=== PATIENT | female | born 1940 | race Caucasian/White ===

== ENCOUNTER 2022-04-11 11:30 | Emergency (ER) | payer MEDICARE, OTHER ==
[~2022-04-11] VITALS: Ht 165.1 cm; Wt 43.5 kg
[~2022-04-11 11:30] MED LIST: AMIT25TA19 PO; AZAT50TA PO; BIMA2.5D EACHEYE; CELE-193 PO; DULO-31 PO; DULO60CA60 PO; ERGO500014 PO; HYDR-3964 PO; HYDR25TA4 PO; MULT-1085 PO; OMEP20CA4 PO; VALS160T2 PO
[2022-04-11 13:46] VITALS: BP 130/53
--- NOTE | 2022-04-11 15:48 | NUR ---
pc to lilian with social work aps. he updated this nurse of another family member noé [phone]. was unable to reach. updated lilian that pt will not be staying.
[2022-04-11] MEDS ORDERED: acetaminophen 325mg tablet PO ONE (16:05)
== END 2022-04-11 16:27 | disposition home or self-care (01) ==
LOC: ER 11:30
DX: Z00.00 Encounter for general adult medical examination without abnormal findings (principal); Z88.1 Allergy status to other antibiotic agents
CPT/HCPCS: 99283

== ENCOUNTER 2022-08-25 10:50 | Emergency (ER) | payer MEDICARE, OTHER ==
[~2022-08-25] VITALS: Ht 166.4 cm; Wt 50.9 kg
[~2022-08-25 10:50] MED LIST changes: -AMIT25TA19 PO; +APIX2.5T PO; -AZAT50TA PO; -BIMA2.5D EACHEYE; -CELE-193 PO; -DULO-31 PO; -DULO60CA60 PO; -ERGO500014 PO; +FURO20TA4 PO; -HYDR-3964 PO; -HYDR25TA4 PO; +LOSA25TA41 PO; -MULT-1085 PO; -OMEP20CA4 PO; +POTA8TAB69 PO; +TRAM50TA2 PO; -VALS160T2 PO
[2022-08-25 12:20] LABS: BASOPHILS # (AUTO) 0.1 X10'3 (0-0.2); EOSINOPHILS # (AUTO) 0.1 X10'3 (0-0.9); EOSINOPHILS % (AUTO) 0.5 % (0-6); HEMOGLOBIN 11.4 g/dl (12.0-16.0); LYMPHOCYTES # (AUTO) 1.2 X10'3 (1.1-4.8); LYMPHOCYTES % (AUTO) 8.3 % (21-51); MEAN CORPUSCULAR HGB CONC 32.5 g/dL (33.0-36.5); MEAN CORPUSCULAR VOLUME 86.2 FL (78-98); MEAN PLATELET VOLUME 6.4 FL (7.4-10.4); MONOCYTES # (AUTO) 1.7 X10'3 (0-0.9); MONOCYTES % (AUTO) 11.6 % (2-12); NEUTROPHILS # (AUTO) 11.7 X10'3 (1.8-7.7); NEUTROPHILS % (AUTO) 78.6 % (42-75); PLATELET COUNT 565 X10'3 (140-440); RED BLOOD COUNT 4.05 X10'6 (4.20-5.60); RED CELL DISTRIBUTION WIDTH 15.5 % (11.5-14.5); WHITE BLOOD COUNT 14.9 X10'3 (4.5-11.0)
[2022-08-25 12:31] VITALS: BP 100/58
[2022-08-25 12:35] LABS: ALANINE AMINOTRANSFERASE 24 U/L (12-78); ALBUMIN 2.5 G/DL (3.4-5.0); ALBUMIN/GLOBULIN RATIO 0.5 (1.1-1.5); ALKALINE PHOSPHATASE 82 IU/L (46-116); ANION GAP 9 (8-16); ASPARTATE AMINO TRANSFERASE 31 U/L (10-37); BILIRUBIN,TOTAL 0.5 MG/DL (0.1-1.0); BLOOD UREA NITROGEN 23 MG/DL (7-18); BUN/CREATININE RATIO 27.4 (10.0-20.0); CHLORIDE 103 MMOL/L (99-107); CREATININE 0.84 MG/DL (0.40-0.90); GLUCOSE 77 MG/DL (70-104); POTASSIUM 4.6 MMOL/L (3.5-5.1); SODIUM 135 MMOL/L (135-145); TOTAL PROTEIN 7.8 G/DL (6.4-8.2); eGFR 65 ML/MIN
[2022-08-25] MEDS ORDERED: normal saline 1000ML IV soln IVB ONE (15:10)
[2022-08-25 16:09] LABS: CLARITY,URINE CLEAR (Clear); COLOR,URINE YELLOW (Yellow); GLUCOSE, URINE NEGATIVE (Neg); KETONES,URINE NEGATIVE (Neg); LEUKOCYTE ESTERASE ,URINE NEGATIVE (Neg); NITRITES, URINE NEGATIVE (Neg); OCCULT BLOOD,URINE TRACE-INTACT (Neg); PH,URINE 6.5 (4.8-8.0); PROTEIN,URINE NEGATIVE (Neg); UROBILINOGEN,URINE 0.2 E.U/dL (0.2-1.0)
[2022-08-25 16:18] LABS: UA COLLECTION TYPE STRAIGHT CATH
[2022-08-25 16:21] LABS: BACTERIA,URINE FEW /HPF (Neg); RBC,URINE 0-2 /HPF (0-2); SQUAMOUS EPITHELIAL CELL,UR FEW /LPF (FEW); WBC,URINE 0-4 /HPF (0-4)
== END 2022-08-25 17:36 | disposition home or self-care (01) ==
LOC: ER 10:51
DX: F41.9 Anxiety disorder, unspecified (principal); F32.A Depression, unspecified; Z88.1 Allergy status to other antibiotic agents
CPT/HCPCS: 36415; 71045; 80053; 81001; 83605; 84145; 85025; 87040; 93005; 99285; J7030; A4353

== ENCOUNTER 2022-08-28 10:32 | Emergency (ER) | payer MEDICARE, OTHER ==
[~2022-08-28] VITALS: Ht 165.1 cm; Wt 51.0 kg
[2022-08-28 12:24] LABS: BASOPHILS # (AUTO) 0.1 X10'3 (0-0.2); EOSINOPHILS # (AUTO) 0.1 X10'3 (0-0.9); LYMPHOCYTES % (AUTO) 11.3 % (21-51); MEAN PLATELET VOLUME 6.3 FL (7.4-10.4); PLATELET COUNT 692 X10'3 (140-440)
[2022-08-28 12:25] LABS: BASOPHILS % (AUTO) 0.8 % (0-1); EOSINOPHILS % (AUTO) 0.6 % (0-6); HEMATOCRIT 38.5 % (35.0-45.0); HEMOGLOBIN 12.4 g/dl (12.0-16.0); MEAN CORPUSCULAR HEMOGLOBIN 27.9 PG (27.0-31.0); MEAN CORPUSCULAR HGB CONC 32.1 g/dL (33.0-36.5); MEAN CORPUSCULAR VOLUME 86.8 FL (78-98); MONOCYTES # (AUTO) 1.7 X10'3 (0-0.9); MONOCYTES % (AUTO) 9.4 % (2-12); NEUTROPHILS # (AUTO) 13.8 X10'3 (1.8-7.7); NEUTROPHILS % (AUTO) 77.9 % (42-75); RED BLOOD COUNT 4.43 X10'6 (4.20-5.60); RED CELL DISTRIBUTION WIDTH 16.1 % (11.5-14.5); WHITE BLOOD COUNT 17.7 X10'3 (4.5-11.0)
[2022-08-28 13:01] LABS: ALANINE AMINOTRANSFERASE 30 U/L (12-78); ALBUMIN 2.7 G/DL (3.4-5.0); ALBUMIN/GLOBULIN RATIO 0.5 (1.1-1.5); ALKALINE PHOSPHATASE 85 IU/L (46-116); ANION GAP 15 (8-16); ASPARTATE AMINO TRANSFERASE 33 U/L (10-37); BILIRUBIN,TOTAL 0.4 MG/DL (0.1-1.0); BLOOD UREA NITROGEN 22 MG/DL (7-18); CALCIUM 9.4 MG/DL (8.5-10.1); CHLORIDE 105 MMOL/L (99-107); CREATININE 0.88 MG/DL (0.40-0.90); GLUCOSE 71 MG/DL (70-104); POTASSIUM 4.1 MMOL/L (3.5-5.1); SODIUM 140 MMOL/L (135-145); TOTAL CARBON DIOXIDE 19.6 MMOL/L (24-32); TOTAL PROTEIN 8.7 G/DL (6.4-8.2); eGFR 61 ML/MIN
[2022-08-28] MEDS ORDERED: phenylephrine/cocoa butter (Preparation H) suppository RC ONE (13:10)
[2022-08-28] MEDS ORDERED: PHEN51CR24 RC (13:12)
[2022-08-28] MEDS ORDERED: PHEN1SUP96 PR (13:12)
--- NOTE | 2022-08-28 13:38 | NUR ---
Straight cath performed. Pt was screaming while I was doing it and started throwing an f word to me. Small urine obtained and sent to lab
[2022-08-28] MEDS: pramoxine 1% foam spray 15gm TP ONE (15:05)
[2022-08-28 15:40] VITALS: BP 105/59
--- NOTE | 2022-08-28 15:49 | NUR ---
Attempted to call patient's son Pasha, no answer, automated voice said "the mailbox is full and cannot accept any new messages at this time!"
[2022-08-28 15:51] LABS: CLARITY,URINE SLIGHTLY CLOUDY (Clear); COLOR,URINE YELLOW (Yellow); GLUCOSE, URINE NEGATIVE (Neg); KETONES,URINE TRACE mg/dl (Neg); LEUKOCYTE ESTERASE ,URINE NEGATIVE (Neg); NITRITES, URINE NEGATIVE (Neg); OCCULT BLOOD,URINE NEGATIVE (Neg); PROTEIN,URINE NEGATIVE (Neg); UROBILINOGEN,URINE 0.2 E.U/dL (0.2-1.0)
--- NOTE | 2022-08-28 15:52 | NUR ---
Called Yeny listed on the demographic data, someone answered the phone but denied her name was Yeny.
[2022-08-28 15:58] LABS: UA COLLECTION TYPE NON-SPECIFIED
[2022-08-28 15:59] LABS: MUCUS STRANDS FEW /LPF (Neg); SQUAMOUS EPITHELIAL CELL,UR FEW /LPF (FEW)
[2022-08-28 16:00] LABS: BACTERIA,URINE FEW /HPF (Neg); WBC,URINE 0-4 /HPF (0-4)
--- NOTE | 2022-08-28 16:04 | NUR ---
Charge nurse Laura notified about the issue with getting hold of family to picking supervisor patient. She advised me to contact social media assistant. Sent a page message to social media assistant to call ER
--- NOTE | 2022-08-28 16:54 | NUR ---
I spoke to the patient's son Pasha on the phone. I gave him update about the patient and that patient is being discharge today. Pasha said he will come and pick up and delivery driver patient. Patient was notified about this
== END 2022-08-28 17:25 | disposition home or self-care (01) ==
LOC: ER 10:32
DX: K64.4 Residual hemorrhoidal skin tags (principal); F41.9 Anxiety disorder, unspecified; F03.90 Unspecified dementia, unspecified severity, without behavioral disturbance, psychotic disturbance, mood disturbance, and anxiety; Z88.1 Allergy status to other antibiotic agents; Z79.899 Other long term (current) drug therapy; Z79.1 Long term (current) use of non-steroidal anti-inflammatories (NSAID); Z79.2 Long term (current) use of antibiotics
CPT/HCPCS: 80053; 81001; 85025; 93005; 99284; A4353; A4615

== ENCOUNTER 2022-09-21 15:57 | Emergency (ER) | payer MEDICARE, OTHER ==
[~2022-09-21] VITALS: Ht 165.1 cm; Wt 50.9 kg
[~2022-09-21 15:57] MED LIST changes: +PHEN1SUP96 PR; +PHEN51CR24 RC
[2022-09-21 16:29] LABS: BASOPHILS # (AUTO) 0.1 X10'3 (0-0.2); EOSINOPHILS # (AUTO) 0.2 X10'3 (0-0.9); EOSINOPHILS % (AUTO) 1.4 % (0-6); HEMATOCRIT 37.5 % (35.0-45.0); HEMOGLOBIN 11.9 g/dl (12.0-16.0); LYMPHOCYTES # (AUTO) 1.7 X10'3 (1.1-4.8); LYMPHOCYTES % (AUTO) 12.5 % (21-51); MEAN CORPUSCULAR HEMOGLOBIN 26.5 PG (27.0-31.0); MEAN CORPUSCULAR HGB CONC 31.7 g/dL (33.0-36.5); MEAN CORPUSCULAR VOLUME 83.6 FL (78-98); MEAN PLATELET VOLUME 6.4 FL (7.4-10.4); MONOCYTES # (AUTO) 1.2 X10'3 (0-0.9); MONOCYTES % (AUTO) 8.9 % (2-12); NEUTROPHILS # (AUTO) 10.4 X10'3 (1.8-7.7); NEUTROPHILS % (AUTO) 76.2 % (42-75); PLATELET COUNT 642 X10'3 (140-440); RED BLOOD COUNT 4.48 X10'6 (4.20-5.60); RED CELL DISTRIBUTION WIDTH 16.3 % (11.5-14.5); WHITE BLOOD COUNT 13.7 X10'3 (4.5-11.0)
[2022-09-21 16:42] LABS: ALANINE AMINOTRANSFERASE 19 U/L (12-78); ALBUMIN 2.6 G/DL (3.4-5.0); ALBUMIN/GLOBULIN RATIO 0.4 (1.1-1.5); ALKALINE PHOSPHATASE 91 IU/L (46-116); ANION GAP 9 (8-16); ASPARTATE AMINO TRANSFERASE 21 U/L (10-37); BILIRUBIN,TOTAL 0.2 MG/DL (0.1-1.0); BLOOD UREA NITROGEN 22 MG/DL (7-18); BUN/CREATININE RATIO 25.9 (10.0-20.0); CALCIUM 9.6 MG/DL (8.5-10.1); CHLORIDE 101 MMOL/L (99-107); CREATININE 0.85 MG/DL (0.40-0.90); GLUCOSE 116 MG/DL (70-104); POTASSIUM 4.5 MMOL/L (3.5-5.1); SODIUM 136 MMOL/L (135-145); TOTAL CARBON DIOXIDE 26.1 MMOL/L (24-32); TOTAL PROTEIN 8.9 G/DL (6.4-8.2); eGFR 64 ML/MIN
[2022-09-21] MEDS ORDERED: morphine 4 MG/ML inj SYRINge IV ONE (17:25)
[2022-09-21] MEDS ORDERED: normal saline 1000ml 1,000 ML IV ONE (17:25)
[2022-09-21] MEDS ORDERED: ondansetron/PF 4mg/2ml inj IV ONE (17:25)
[2022-09-21 17:59] LABS: CLARITY,URINE CLEAR (Clear); COLOR,URINE YELLOW (Yellow); GLUCOSE, URINE NEGATIVE (Neg); KETONES,URINE NEGATIVE (Neg); LEUKOCYTE ESTERASE ,URINE NEGATIVE (Neg); NITRITES, URINE NEGATIVE (Neg); OCCULT BLOOD,URINE NEGATIVE (Neg); PH,URINE 7.5 (4.8-8.0); PROTEIN,URINE NEGATIVE (Neg); UROBILINOGEN,URINE 0.2 E.U/dL (0.2-1.0)
[2022-09-21 18:01] LABS: UA COLLECTION TYPE OTHER
[2022-09-21 19:44] VITALS: BP 93/66
== END 2022-09-21 19:47 | disposition home or self-care (01) ==
LOC: ER 15:57
DX: K64.9 Unspecified hemorrhoids (principal); F41.9 Anxiety disorder, unspecified; F03.90 Unspecified dementia, unspecified severity, without behavioral disturbance, psychotic disturbance, mood disturbance, and anxiety; Z88.0 Allergy status to penicillin; Z79.899 Other long term (current) drug therapy; Z79.1 Long term (current) use of non-steroidal anti-inflammatories (NSAID); Z79.2 Long term (current) use of antibiotics
CPT/HCPCS: 36415; 71045; 80053; 81003; 83880; 84484; 85025; 93005; 96361; 96374; 96375; 99285; J2270; J2405; J7030

== ENCOUNTER 2022-09-26 11:02 | Emergency (ER) | payer MEDICARE, OTHER ==
[~2022-09-26] VITALS: Ht 165.1 cm; Wt 50.0 kg
[~2022-09-26 11:02] MED LIST changes: -TRAM50TA2 PO
[2022-09-26] MEDS ORDERED: oxyCODONE IR 5mg (immed. release) tablet PO ONE (11:45)
[2022-09-26] MEDS ORDERED: acetaminophen 325mg tablet PO ONE (11:45)
[2022-09-26] MEDS ORDERED: normal saline 500ml IV soln 500 ML IV ONE (13:20)
[2022-09-26 14:09] LABS: ANION GAP 12 (8-16); BILIRUBIN,TOTAL 0.3 MG/DL (0.1-1.0); BLOOD UREA NITROGEN 18 MG/DL (7-18); BUN/CREATININE RATIO 18.9 (10.0-20.0); CALCIUM 9.8 MG/DL (8.5-10.1); CHLORIDE 104 MMOL/L (99-107); CREATININE 0.95 MG/DL (0.40-0.90); GLUCOSE 109 MG/DL (70-104); SODIUM 138 MMOL/L (135-145); TOTAL CARBON DIOXIDE 21.7 MMOL/L (24-32); TOTAL PROTEIN 8.5 G/DL (6.4-8.2); eGFR 56 ML/MIN
[2022-09-26 14:10] LABS: ALANINE AMINOTRANSFERASE 12 U/L (12-78); ALBUMIN 2.5 G/DL (3.4-5.0); ALBUMIN/GLOBULIN RATIO 0.4 (1.1-1.5); ALKALINE PHOSPHATASE 83 IU/L (46-116)
[2022-09-26 14:16] LABS: ASPARTATE AMINO TRANSFERASE 21 U/L (10-37); POTASSIUM 5.2 MMOL/L (3.5-5.1)
[2022-09-26] MEDS ORDERED: iohexol 300mg/ml 100ml inj. ONE (15:11)
[2022-09-26 16:08] LABS: BASOPHILS % (AUTO) 0.2 % (0-1); EOSINOPHILS # (AUTO) 0.1 X10'3 (0-0.9); EOSINOPHILS % (AUTO) 1.3 % (0-6); HEMATOCRIT 31.1 % (35.0-45.0); HEMOGLOBIN 9.9 g/dl (12.0-16.0); LYMPHOCYTES % (AUTO) 17.8 % (21-51); MEAN CORPUSCULAR HEMOGLOBIN 26.4 PG (27.0-31.0); MEAN CORPUSCULAR HGB CONC 31.9 g/dL (33.0-36.5); MEAN CORPUSCULAR VOLUME 82.9 FL (78-98); MEAN PLATELET VOLUME 6.4 FL (7.4-10.4); MONOCYTES # (AUTO) 1.1 X10'3 (0-0.9); MONOCYTES % (AUTO) 9.7 % (2-12); NEUTROPHILS # (AUTO) 8.1 X10'3 (1.8-7.7); PLATELET COUNT 569 X10'3 (140-440); RED BLOOD COUNT 3.74 X10'6 (4.20-5.60); RED CELL DISTRIBUTION WIDTH 16.1 % (11.5-14.5); WHITE BLOOD COUNT 11.4 X10'3 (4.5-11.0)
[2022-09-26] MEDS ORDERED: LIDOcaine 1% W/epiNEPHrine 1:100,000 20ml vial SQ ONE (18:00)
[2022-09-26 19:50] VITALS: BP 138/89
== END 2022-09-26 19:52 | disposition home or self-care (01) ==
LOC: ER 11:02
DX: K62.5 Hemorrhage of anus and rectum (principal); R07.9 Chest pain, unspecified; R10.9 Unspecified abdominal pain; K64.9 Unspecified hemorrhoids; R51.9 Headache, unspecified; F41.9 Anxiety disorder, unspecified; F03.90 Unspecified dementia, unspecified severity, without behavioral disturbance, psychotic disturbance, mood disturbance, and anxiety; Z88.1 Allergy status to other antibiotic agents
CPT/HCPCS: 36415; 70450; 71045; 74177; 80053; 83880; 84484; 85025; 85610; 86885; 86900; 86901; 93005; 99285; J3490; J7030; J7040; Q9967; A4615; A4620

== ENCOUNTER 2022-11-15 22:45 | Inpatient (IN) | payer MEDICARE, OTHER ==
[~2022-11-15] VITALS: Ht 162.6 cm; Wt 56.8 kg
[~2022-11-15 22:45] MED LIST changes: +ACET-1008 PO; -APIX2.5T PO; +DOCU-148 PO; +DULO30CA52 PO; +LEVO-65 PO; +MULT-1074 PO; -PHEN1SUP96 PR; -PHEN51CR24 RC; +RIVA15TA PO
[2022-11-15] MEDS ORDERED: acetaminophen 325mg tablet PO ONE (23:35)
[2022-11-16] VITALS (7 sets, daily range): BP systolic 82–125; BP diastolic 35–93
[2022-11-16 01:02] LABS: BASOPHILS # (AUTO) 0.1 X10'3 (0-0.2); BASOPHILS % (AUTO) 0.7 % (0-1); EOSINOPHILS # (AUTO) 0.2 X10'3 (0-0.9); MEAN PLATELET VOLUME 6.4 FL (7.4-10.4)
[2022-11-16 01:04] LABS: EOSINOPHILS % (AUTO) 1.3 % (0-6); HEMOGLOBIN 10.5 g/dl (12.0-16.0); LYMPHOCYTES % (AUTO) 6.7 % (21-51); MEAN CORPUSCULAR HEMOGLOBIN 26.4 PG (27.0-31.0); MEAN CORPUSCULAR HGB CONC 31.8 g/dL (33.0-36.5); MEAN CORPUSCULAR VOLUME 83.1 FL (78-98); MONOCYTES # (AUTO) 1.8 X10'3 (0-0.9); MONOCYTES % (AUTO) 11.9 % (2-12); NEUTROPHILS # (AUTO) 12.3 X10'3 (1.8-7.7); NEUTROPHILS % (AUTO) 79.4 % (42-75); PLATELET COUNT 617 X10'3 (140-440); RED BLOOD COUNT 3.98 X10'6 (4.20-5.60); RED CELL DISTRIBUTION WIDTH 18.9 % (11.5-14.5); WHITE BLOOD COUNT 15.5 X10'3 (4.5-11.0)
[2022-11-16 01:10] LABS: ALANINE AMINOTRANSFERASE 27 U/L (12-78); ALBUMIN 2.1 G/DL (3.4-5.0); ALBUMIN/GLOBULIN RATIO 0.4 (1.1-1.5); ALKALINE PHOSPHATASE 237 IU/L (46-116); ANION GAP 9 (8-16); ASPARTATE AMINO TRANSFERASE 39 U/L (10-37); BILIRUBIN,TOTAL 0.4 MG/DL (0.1-1.0); BLOOD UREA NITROGEN 22 MG/DL (7-18); BUN/CREATININE RATIO 30.1 (10.0-20.0); CALCIUM 8.6 MG/DL (8.5-10.1); CHLORIDE 99 MMOL/L (99-107); CREATININE 0.73 MG/DL (0.40-0.90); GLUCOSE 117 MG/DL (70-104); LIPASE 196 U/L (73-393); POTASSIUM 4.2 MMOL/L (3.5-5.1); SODIUM 135 MMOL/L (135-145); TOTAL CARBON DIOXIDE 27.4 MMOL/L (24-32); TOTAL PROTEIN 6.9 G/DL (6.4-8.2); eGFR 76 ML/MIN
[2022-11-16] MEDS ORDERED: normal saline 1000ml 1,000 ML IV ONE ×2 (01:10→14:55)
[2022-11-16 01:34] LABS: ANISOCYTOSIS 2+; PLATELET ESTIMATE INCREASED; TOTAL CELLS COUNTED 100
[2022-11-16 01:37] LABS: GIANT PLATELET FEW; HYPERSEGMENTED NEUTROPHILS 1+; LARGE PLATELETS FEW
[2022-11-16 01:39] LABS: POIKILOCYTOSIS FEW
[2022-11-16] MEDS ORDERED: magnesium 4gm in 100ml NS 100 ML IV PRN (02:05)
[2022-11-16] MEDS ORDERED: potassium Cl 20 mEq SR tablet PO PRN ×2 (02:05)
[2022-11-16] MEDS ORDERED: mag hydrox/Alum hydrox/simeth 30ml oral suspension PO PRN (02:05)
[2022-11-16] MEDS ORDERED: magnesium hydroxide 30ml (MOM) UD suspension PO PRN (02:05)
[2022-11-16] MEDS ORDERED: potassium Cl 40MEQ/1/2NS 520ml 520 ML IV PRN (02:05)
[2022-11-16] MEDS ORDERED: magnesium Cl slow-release 64mg tablet PO PRN (02:05)
[2022-11-16] MEDS ORDERED: magnesium 2GM in 50ml NS 50 ML IV PRN (02:05)
[2022-11-16] MEDS ORDERED: ondansetron/PF 4mg/2ml inj IV PRN (02:05)
[2022-11-16] MEDS ORDERED: normal saline 500ml IV soln 500 ML IV ONE (02:45)
--- NOTE | 2022-11-16 03:00 | NUR ---
PUREWICK ONLY NO PECK PER DR YANES
--- NOTE | 2022-11-16 04:08 | NUR ---
pt arrived to floor. oriented, noted low BP on left arm, higher on left. pt stable, sleepy. bed alarm active. insight of station. wick in place.
[2022-11-16] MEDS ORDERED: OMEP40CA21 PO (04:13)
[2022-11-16] MEDS ORDERED: LOP12.5T PO (04:16)
[2022-11-16] MEDS ORDERED: IPRA3AMP31 IH (04:21)
[2022-11-16] MEDS ORDERED: acetaminophen 325mg tablet PO PRN (04:30)
[2022-11-16] MEDS: acetaminophen 325mg tablet PO PRN (05:55)
--- NOTE | 2022-11-16 06:00 | NUR ---
Patient in room ORTHO 4010. I have received report from Brock ROY and had the opportunity to ask questions and assume patient care.
[2022-11-16 06:23] LABS: MAGNESIUM 1.8 MG/DL (1.5-2.4); POTASSIUM 4.1 MMOL/L (3.5-5.1)
--- NOTE | 2022-11-16 06:31 | NUR ---
reported to days. noted pt has not voided and need urinalysis. wick in place.
[2022-11-16] MEDS ORDERED: docusate sod 100mg capsule PO SCH (08:00)
[2022-11-16] MEDS: K and/or MAG REPLACEMENT MC SCH ×2 (08:00→19:47)
[2022-11-16] MEDS: ipratropium/albuterol 3ml nebule IH SCH ×3 (08:29→21:03)
[2022-11-16] MEDS: docusate sod 100mg capsule PO SCH ×2 (08:56→20:45)
[2022-11-16] MEDS: pantoprazole 40mg Tablet.DR PO SCH (08:56)
[2022-11-16] MEDS: duloxetine 30mg CAPSULE.DR PO SCH (08:56)
--- NOTE | 2022-11-16 09:28 | NUR ---
wound consult in for this patient, unaware if a message was left for wound care. I called and LMOM to see patient or RC. 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
--- NOTE | 2022-11-16 09:52 | NUR ---
Wound care came to the unit and did the wound care assessment
--- NOTE | 2022-11-16 09:55 | NUR ---
Patient son Kelton is here in the patient room. Kelton expressed his concerns about his mothers care. Kelton stated that his mother was here the 1st time in the beginning of the month because of a fall at home. The action plan for his mother was to go to [facility] for short term rehab. Patient went to [facility] for 4-5 days and came back to [facility] on Sunday the . [facility] notified son Kelton due to patient elevated heart rate. Patient was sent back to [facility]. On the patient fell at [facility] and sent patient back to [facility].
[2022-11-16] MEDS ORDERED: ondansetron 4mg rapidly disintigrating tab PO PRN (11:00)
[2022-11-16] MEDS ORDERED: LidoCAINE 2% Topical Jelly 11mL syringe MM ONE ×2 (11:35→11:40)
--- NOTE | 2022-11-16 11:45 | NUR ---
Patient Markie Melara (Pasha) phone number is [phone]. Provided to CM and SBAR updated
[2022-11-16 12:55] LABS: CLARITY,URINE SLIGHTLY CLOUDY (Clear); COLOR,URINE YELLOW (Yellow); GLUCOSE, URINE NEGATIVE (Neg); KETONES,URINE NEGATIVE (Neg); LEUKOCYTE ESTERASE ,URINE NEGATIVE (Neg); NITRITES, URINE POSITIVE (Neg); OCCULT BLOOD,URINE NEGATIVE (Neg); PH,URINE 8.5 (4.8-8.0); PROTEIN,URINE TRACE mg/dl (Neg); UROBILINOGEN,URINE 0.2 E.U/dL (0.2-1.0)
--- NOTE | 2022-11-16 12:58 | NUR ---
Message: [id number]- Racheal Villalta- Can patient have Ensure Enlive? Pls advise? DWAYNE delvalle [phone]
[2022-11-16 13:00] LABS: UA COLLECTION TYPE STRAIGHT CATH
[2022-11-16 13:02] LABS: BACTERIA,URINE 4+ /HPF (Neg); RBC,URINE NONE SEEN /HPF (0-2); SQUAMOUS EPITHELIAL CELL,UR FEW /LPF (FEW)
[2022-11-16 13:03] LABS: WBC CLUMPS,URINE FEW /HPF (NEGATIVE)
[2022-11-16 13:04] LABS: WBC,URINE 20-30 /HPF (0-4)
--- NOTE | 2022-11-16 13:18 | NUR ---
Ruben Consult: Pt Ruben 11 w/ sacral MASD/shearing otherwise skin intact per WOC note. Noted pt BMI 18.9 using 50kg reported wt pending scaled wt this admit though pt appears cachectic per H&P note. Pt AOx1 reports no wt loss or decreased intake per RN Malnutrition Screen but hx dementia so unsure accuracy. Pt seen by RD at bedside mostly sleeping wouldn't stay awake for interview. Noted pt is thin w/ sunken temples though unsure if baseline appearance given age. RD attempted second pt visit in which pt was awake w/ RN present though pt declines RD physical assessment at this time. Pt son Pasha [phone]; per Pasha pt UBW ~110 pounds was down to 100 pounds at one point though able to return to 110 pounds. 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 Pasha reports pt does drink Ensures routinely at home. Pt wt hx per son consistent w/ current reported wt and given prior good appetite reported pt likely maintains stable underweight status at baseline. RD did notify MD recommends scaled wt this admit to better assess wt status. If pt has had wt loss then would certainly meet malnutrition criteria though unable to say for certain at this time until scaled wt. Pt did not eat first regular breakfast this AM related to nausea per TOWER DRAGLINE OPERATOR now placed on full liquids/thin diet per MECHANICAL ARTIST recs. Pt started to eat solids lunch but tray had to be removed w/ new late full liquids tray made given MECHANICAL ARTIST recs. KAVYA d/w RN recommends Ensure Enlive TIDWM if MD agreeable. Addendum: 11/16/22 at [address] Amended: Links added. Addendum: 11/16/22 at [address] Ruben Consult: Pt Ruben 11 w/ sacral MASD/shearing otherwise skin intact per WOC note. Noted pt BMI 18.9 using 50kg reported wt pending scaled wt this admit though pt appears cachectic per H&P note. Pt AOx1 reports no wt loss or decreased intake per RN Malnutrition Screen but hx dementia so unsure accuracy. Pt seen by RD at bedside mostly sleeping wouldn't stay awake for interview. Noted pt is thin w/ sunken temples though unsure if baseline appearance given age. RD attempted second pt visit in which pt was awake w/ RN present though pt declines RD physical assessment at this time. Pt son Pasha [phone] contacted by KAVYA; per Pasha pt UBW ~110 pounds was down to 100 pounds at one point though able to return to 110 pounds. 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 Pasha reports pt does drink Ensures routinely at home. Pt wt hx per son consistent w/ current reported wt and given prior good appetite reported pt likely maintains stable underweight status at baseline. KAVYA did notify MD recommends scaled wt this admit to better assess wt status. If pt has had wt loss then would certainly meet malnutrition criteria though unable to say for certain at this time until scaled wt. Pt did not eat first regular breakfast this AM related to nausea per TOWER DRAGLINE OPERATOR now placed on full liquids/thin diet per MECHANICAL ARTIST recs. Pt started to eat solids lunch but tray had to be removed w/ new late full liquids tray made given MECHANICAL ARTIST recs. RD d/w RN recommends Ensure Enlive TIDWM if MD agreeable. Rec: 1. advance diet as medically indicated to regular per MECHANICAL ARTIST/MD recs 2. Ensure Enlive TIDWM if MD agreeable; encourage meals/ONS intake
--- NOTE | 2022-11-16 14:50 | NUR ---
Message: [id number]- Racheal Villalta- patient BP is 82/35 Hr 67. manually, BP 84/42. Pls advise? TY [phone] Negrita
--- NOTE | 2022-11-16 14:53 | NUR ---
Dr. Hewitt called back and stated to give patient 1L NS Bolus and then NS fluids at 75ml/hr. Orders placed and RN hanging fluids
--- NOTE | 2022-11-16 14:55 | NUR ---
Per Dr. Marcelina burch for patient to have ensure enlive. orders placed and dispatch coordinator notified
--- NOTE | 2022-11-16 15:04 | NUR ---
MACHINE PRECISION ETCHER documentation: I have reviewed and agree with all interventions, assessments performed and documented by Negrita Ortiz LVN.
[2022-11-16] MEDS: CefTRIAXone/D5W-Rocephin 1gm 50 ML IV SCH (15:48)
--- NOTE | 2022-11-16 16:30 | NUR ---
Message: [id number]- Racheal Villalta- Patient has a PLOST DNR in chart but emar shows FULL code. Pls advise? TY Negrita [phone]
[2022-11-16] MEDS: normal saline 1000ml 1,000 ML IV SCH (16:53)
[2022-11-16] MEDS: rivaroxaban 15mg tablet PO SCH (17:39)
[2022-11-16] MEDS: lactose-reduced food (Ensure Enlive) - 237ml bottle PO SCH (18:00)
--- NOTE | 2022-11-16 18:20 | NUR ---
Problems reprioritized. Patient report given, questions answered & plan of care reviewed with Leann ROY.
--- NOTE | 2022-11-16 19:16 | NUR ---
Patient in room ORTHO 4010. I have received report from Negrita DE OLIVEIRA and had the opportunity to ask questions and assume patient care.
[2022-11-16] MEDS: metoprolol tartrate 12.5mg (1/2 tablet) PO SCH (20:00)
[2022-11-16] MEDS: lactobacillus rhamnosus 10,000 MMU CELLS/CAPSULE PO SCH (20:45)
--- NOTE | 2022-11-16 21:24 | NUR ---
Pt's BP was 108/52. Contacted provider with request to hold Lopressor due to consistent low bp throughout the day. Provider advised to hold Lopressor
--- NOTE | 2022-11-17 00:25 | NUR ---
Pt was bladder scanned with a residual of 430ml. Provider was contacted and advised that pt would be straight cathed as needed for urinary retention greater than 400ml Addendum: 11/17/22 at 0225 by Zakiya Campbell RN Pt was straight cathed with a residual of 300mls. Will continue to monitor
[2022-11-17] MEDS: acetaminophen 325mg tablet PO PRN ×2 (00:37→22:28)
[2022-11-17] MEDS: ipratropium/albuterol 3ml nebule IH SCH ×4 (03:00→20:58)
[2022-11-17] MEDS: normal saline 1000ml 1,000 ML IV SCH ×2 (04:01→17:36)
[2022-11-17] MEDS: HYDROcodone/acetaminophen 5mg/325mg tablet PO PRN ×3 (04:24→15:09)
[2022-11-17 06:00] VITALS: BP 127/49
[2022-11-17 06:20] LABS: BASOPHILS # (AUTO) 0.1 X10'3 (0-0.2); BASOPHILS % (AUTO) 0.9 % (0-1); EOSINOPHILS # (AUTO) 0.1 X10'3 (0-0.9); HEMATOCRIT 30.7 % (35.0-45.0); HEMOGLOBIN 9.7 g/dl (12.0-16.0); LYMPHOCYTES # (AUTO) 0.4 X10'3 (1.1-4.8); LYMPHOCYTES % (AUTO) 6.3 % (21-51); MEAN CORPUSCULAR HEMOGLOBIN 26.5 PG (27.0-31.0); MEAN CORPUSCULAR HGB CONC 31.5 g/dL (33.0-36.5); MEAN CORPUSCULAR VOLUME 84.1 FL (78-98); MEAN PLATELET VOLUME 6.5 FL (7.4-10.4); MONOCYTES # (AUTO) 0.7 X10'3 (0-0.9); MONOCYTES % (AUTO) 10.8 % (2-12); NEUTROPHILS # (AUTO) 5.1 X10'3 (1.8-7.7); PLATELET COUNT 516 X10'3 (140-440); RED BLOOD COUNT 3.65 X10'6 (4.20-5.60); RED CELL DISTRIBUTION WIDTH 19.4 % (11.5-14.5); WHITE BLOOD COUNT 6.3 X10'3 (4.5-11.0)
[2022-11-17 06:41] LABS: ALANINE AMINOTRANSFERASE 25 U/L (12-78); ALBUMIN 1.9 G/DL (3.4-5.0); ALBUMIN/GLOBULIN RATIO 0.4 (1.1-1.5); ALKALINE PHOSPHATASE 244 IU/L (46-116); ANION GAP 8 (8-16); ASPARTATE AMINO TRANSFERASE 35 U/L (10-37); BILIRUBIN,TOTAL 0.3 MG/DL (0.1-1.0); BLOOD UREA NITROGEN 9 MG/DL (7-18); BUN/CREATININE RATIO 12.5 (10.0-20.0); CALCIUM 8.5 MG/DL (8.5-10.1); CHLORIDE 105 MMOL/L (99-107); CREATININE 0.72 MG/DL (0.40-0.90); GLUCOSE 93 MG/DL (70-104); MAGNESIUM 1.7 MG/DL (1.5-2.4); POTASSIUM 4.4 MMOL/L (3.5-5.1); SODIUM 138 MMOL/L (135-145); TOTAL CARBON DIOXIDE 25.3 MMOL/L (24-32); TOTAL PROTEIN 6.5 G/DL (6.4-8.2); eGFR 77 ML/MIN
--- NOTE | 2022-11-17 06:43 | NUR ---
Patient in room ORTHO 4010. I have received report from MANUELA Weaver and had the opportunity to ask questions and assume patient care.
[2022-11-17 07:27] LABS: HYPOCHROMASIA 1+; PLATELET ESTIMATE INCREASED; POLYCHROMASIA FEW
[2022-11-17 07:28] LABS: ANISOCYTOSIS 2+; STOMATOCYTES FEW; TEAR DROP CELLS FEW
[2022-11-17] MEDS: K and/or MAG REPLACEMENT MC SCH ×2 (08:00→19:01)
[2022-11-17] MEDS: CefTRIAXone/D5W-Rocephin 1gm 50 ML IV SCH (08:04)
[2022-11-17] MEDS: lactobacillus rhamnosus 10,000 MMU CELLS/CAPSULE PO SCH ×2 (08:33→19:44)
[2022-11-17] MEDS: pantoprazole 40mg Tablet.DR PO SCH (08:33)
[2022-11-17] MEDS: duloxetine 30mg CAPSULE.DR PO SCH (08:33)
[2022-11-17] MEDS: docusate sod 100mg capsule PO SCH ×2 (08:33→19:44)
[2022-11-17] MEDS: metoprolol tartrate 12.5mg (1/2 tablet) PO SCH ×2 (08:34→20:00)
[2022-11-17] MEDS: multivitamins, therapeutics tablet PO SCH (08:34)
[2022-11-17] MEDS: lactose-reduced food (Ensure Enlive) - 237ml bottle PO SCH ×3 (08:35→17:44)
--- NOTE | 2022-11-17 12:46 | NUR ---
F/u: A bed scaled wt was obtained, pt 56.8 kg (125 lbs) which is 114% reported UBW. Given scaled wt and information in previous RD note pt currently lacks a minimum of two criteria for malnutrition. Will continue to follow. Addendum: 11/17/22 at [address] Amended: Links added.
--- NOTE | 2022-11-17 14:16 | NUR ---
Patient confirmed that it is OK to give out medical information about her to her son Pasha Villalta.
--- NOTE | 2022-11-17 16:12 | NUR ---
Patient was bladder scanned at 1600 and it showed 209 ml urine in bladder. Will continue to monitor.
[2022-11-17] MEDS: rivaroxaban 15mg tablet PO SCH (17:43)
[2022-11-17 18:00] VITALS: BP 100/35
--- NOTE | 2022-11-17 18:00 | NUR ---
Patient in room ORTHO 4010. I have received report from Christiane ROY and had the opportunity to ask questions and assume patient care.
--- NOTE | 2022-11-17 18:13 | NUR ---
Problems reprioritized. Patient report given, questions answered & plan of care reviewed with MANUELA Weaver.
--- NOTE | 2022-11-17 20:00 | NUR ---
Pt had a blood pressure of 90/39 with a hr of 71. Lopressor was held
[2022-11-17 22:00] VITALS: BP 117/43
--- NOTE | 2022-11-18 00:38 | NUR ---
Pt has had no urine output this shift. Pt was bladder scanned with a residual of 499ml. Pt was encouraged to void and immediately voided 420ml. Will continue to monitor
[2022-11-18] MEDS: ipratropium/albuterol 3ml nebule IH SCH ×4 (03:10→21:00)
[2022-11-18] MEDS: normal saline 1000ml 1,000 ML IV SCH ×2 (03:27→16:29)
[2022-11-18 06:00] VITALS: BP 176/67
[2022-11-18 06:41] LABS: BASOPHILS # (AUTO) 0.1 X10'3 (0-0.2); EOSINOPHILS % (AUTO) 0.8 % (0-6); LYMPHOCYTES # (AUTO) 0.9 X10'3 (1.1-4.8); MEAN CORPUSCULAR HEMOGLOBIN 26.4 PG (27.0-31.0); NEUTROPHILS # (AUTO) 4.2 X10'3 (1.8-7.7); WHITE BLOOD COUNT 6.2 X10'3 (4.5-11.0)
--- NOTE | 2022-11-18 06:42 | NUR ---
Patient in room ORTHO 4010. I have received report from MANUELA Noriega and had the opportunity to ask questions and assume patient care.
[2022-11-18 06:45] LABS: BASOPHILS % (AUTO) 1.2 % (0-1); HEMATOCRIT 35.9 % (35.0-45.0); HEMOGLOBIN 11.3 g/dl (12.0-16.0); LYMPHOCYTES % (AUTO) 14.6 % (21-51); MEAN CORPUSCULAR HGB CONC 31.5 g/dL (33.0-36.5); MEAN CORPUSCULAR VOLUME 83.7 FL (78-98); MEAN PLATELET VOLUME 6.8 FL (7.4-10.4); MONOCYTES % (AUTO) 16.2 % (2-12); NEUTROPHILS % (AUTO) 67.2 % (42-75); PLATELET COUNT 574 X10'3 (140-440); RED BLOOD COUNT 4.28 X10'6 (4.20-5.60); RED CELL DISTRIBUTION WIDTH 19.2 % (11.5-14.5)
[2022-11-18] MEDS: HYDROcodone/acetaminophen 5mg/325mg tablet PO PRN ×2 (06:46→20:01)
[2022-11-18 07:10] LABS: ALANINE AMINOTRANSFERASE 21 U/L (12-78); ALBUMIN 1.9 G/DL (3.4-5.0); ALBUMIN/GLOBULIN RATIO 0.4 (1.1-1.5); ALKALINE PHOSPHATASE 234 IU/L (46-116); ANION GAP 12 (8-16); ASPARTATE AMINO TRANSFERASE 27 U/L (10-37); BILIRUBIN,TOTAL 0.2 MG/DL (0.1-1.0); BLOOD UREA NITROGEN 10 MG/DL (7-18); BUN/CREATININE RATIO 16.4 (10.0-20.0); CALCIUM 8.7 MG/DL (8.5-10.1); CHLORIDE 105 MMOL/L (99-107); CREATININE 0.61 MG/DL (0.40-0.90); GLUCOSE 101 MG/DL (70-104); MAGNESIUM 1.7 MG/DL (1.5-2.4); PHOSPHORUS 3.1 MG/DL (2.3-4.5); POTASSIUM 3.7 MMOL/L (3.5-5.1); SODIUM 139 MMOL/L (135-145); TOTAL CARBON DIOXIDE 22.2 MMOL/L (24-32); TOTAL PROTEIN 6.7 G/DL (6.4-8.2); eGFR > 90 ML/MIN
[2022-11-18] MEDS: pantoprazole 40mg Tablet.DR PO SCH (07:22)
[2022-11-18] MEDS: metoprolol tartrate 12.5mg (1/2 tablet) PO SCH ×2 (07:22→21:01)
[2022-11-18] MEDS: docusate sod 100mg capsule PO SCH ×2 (07:22→20:00)
[2022-11-18] MEDS: duloxetine 30mg CAPSULE.DR PO SCH (07:22)
[2022-11-18] MEDS: lactobacillus rhamnosus 10,000 MMU CELLS/CAPSULE PO SCH ×2 (07:22→21:02)
[2022-11-18] MEDS: multivitamins, therapeutics tablet PO SCH (07:22)
[2022-11-18] MEDS: CefTRIAXone/D5W-Rocephin 1gm 50 ML IV SCH (07:33)
[2022-11-18 08:09] LABS: ANISOCYTOSIS 2+; PLATELET ESTIMATE INCREASED; TOTAL CELLS COUNTED 100
[2022-11-18] MEDS: lactose-reduced food (Ensure Enlive) - 237ml bottle PO SCH ×3 (08:36→18:00)
[2022-11-18] MEDS: K and/or MAG REPLACEMENT MC SCH ×2 (08:36→20:00)
[2022-11-18 11:00] VITALS: BP 144/59
[2022-11-18 18:00] VITALS: BP 158/82
--- NOTE | 2022-11-18 18:23 | NUR ---
Problems reprioritized. Patient report given, questions answered & plan of care reviewed with MANUELA Chua.
[2022-11-18] MEDS: rivaroxaban 15mg tablet PO SCH (21:01)
[2022-11-18 22:00] VITALS: BP 130/67
[2022-11-19] MEDS: ipratropium/albuterol 3ml nebule IH SCH ×4 (03:03→21:03)
[2022-11-19 04:26] LABS: BASOPHILS # (AUTO) 0.1 X10'3 (0-0.2); BASOPHILS % (AUTO) 1.2 % (0-1); EOSINOPHILS % (AUTO) 0.9 % (0-6); HEMATOCRIT 36.3 % (35.0-45.0); HEMOGLOBIN 11.7 g/dl (12.0-16.0); LYMPHOCYTES % (AUTO) 19.3 % (21-51); MEAN CORPUSCULAR HEMOGLOBIN 26.6 PG (27.0-31.0); MEAN CORPUSCULAR HGB CONC 32.3 g/dL (33.0-36.5); MEAN CORPUSCULAR VOLUME 82.4 FL (78-98); MEAN PLATELET VOLUME 6.6 FL (7.4-10.4); MONOCYTES # (AUTO) 0.9 X10'3 (0-0.9); MONOCYTES % (AUTO) 16.3 % (2-12); NEUTROPHILS # (AUTO) 3.3 X10'3 (1.8-7.7); NEUTROPHILS % (AUTO) 62.3 % (42-75); PLATELET COUNT 586 X10'3 (140-440); RED CELL DISTRIBUTION WIDTH 19.3 % (11.5-14.5); WHITE BLOOD COUNT 5.4 X10'3 (4.5-11.0)
[2022-11-19 04:58] LABS: ALANINE AMINOTRANSFERASE 19 U/L (12-78); ALBUMIN 1.9 G/DL (3.4-5.0); ALBUMIN/GLOBULIN RATIO 0.4 (1.1-1.5); ALKALINE PHOSPHATASE 218 IU/L (46-116); ANION GAP 12 (8-16); ASPARTATE AMINO TRANSFERASE 29 U/L (10-37); BILIRUBIN,TOTAL 0.2 MG/DL (0.1-1.0); BLOOD UREA NITROGEN 7 MG/DL (7-18); BUN/CREATININE RATIO 12.1 (10.0-20.0); CALCIUM 8.2 MG/DL (8.5-10.1); CHLORIDE 103 MMOL/L (99-107); CREATININE 0.58 MG/DL (0.40-0.90); GLUCOSE 99 MG/DL (70-104); MAGNESIUM 1.4 MG/DL (1.5-2.4); PHOSPHORUS 2.9 MG/DL (2.3-4.5); POTASSIUM 3.8 MMOL/L (3.5-5.1); SODIUM 138 MMOL/L (135-145); TOTAL CARBON DIOXIDE 23.5 MMOL/L (24-32); TOTAL PROTEIN 6.3 G/DL (6.4-8.2); eGFR > 90 ML/MIN
[2022-11-19 06:30] VITALS: BP 166/80
--- NOTE | 2022-11-19 06:30 | NUR ---
Patient in room ORTHO 4007. I have received report from Toma ROY and had the opportunity to ask questions and assume patient care.
--- NOTE | 2022-11-19 06:42 | NUR ---
Gave report to ALVINO Silva
[2022-11-19] MEDS: CefTRIAXone/D5W-Rocephin 1gm 50 ML IV SCH (07:23)
[2022-11-19] MEDS: lactose-reduced food (Ensure Enlive) - 237ml bottle PO SCH ×3 (08:00→18:00)
[2022-11-19] MEDS: K and/or MAG REPLACEMENT MC SCH ×2 (08:00→20:00)
[2022-11-19] MEDS: pantoprazole 40mg Tablet.DR PO SCH (09:22)
[2022-11-19] MEDS: docusate sod 100mg capsule PO SCH ×2 (09:22→20:48)
[2022-11-19] MEDS: multivitamins, therapeutics tablet PO SCH (09:22)
[2022-11-19] MEDS: lactobacillus rhamnosus 10,000 MMU CELLS/CAPSULE PO SCH ×2 (09:22→20:48)
[2022-11-19] MEDS: metoprolol tartrate 12.5mg (1/2 tablet) PO SCH ×2 (09:23→20:49)
[2022-11-19] MEDS: duloxetine 30mg CAPSULE.DR PO SCH (09:23)
[2022-11-19] MEDS: normal saline 1000ml 1,000 ML IV SCH ×2 (09:35→22:55)
[2022-11-19 10:00] VITALS: BP 134/70
[2022-11-19] MEDS: HYDROcodone/acetaminophen 5mg/325mg tablet PO PRN ×2 (10:31→21:01)
[2022-11-19] MEDS: linezolid 600mg tablet PO SCH ×2 (13:42→20:49)
[2022-11-19 18:00] VITALS: BP 115/73
--- NOTE | 2022-11-19 18:30 | NUR ---
Patient in room ORTHO 4007. I have received report from Evelyne DE OLIVEIRA and had the opportunity to ask questions and assume patient care.
--- NOTE | 2022-11-19 19:00 | NUR ---
Patients' son Kelton in visiting. He verbalized several times that he does not want his mom going back to [facility] after recent falls. Advised him to call in the morning after 9am to talk with case management. All other questions were answered to his satisfaction.
[2022-11-19] MEDS ORDERED: potassium Cl 20 mEq SR tablet PO PRN (20:35)
[2022-11-19] MEDS ORDERED: magnesium 4gm in 100ml NS 100 ML IV PRN (20:35)
[2022-11-19] MEDS ORDERED: magnesium Cl slow-release 64mg tablet PO PRN (20:35)
[2022-11-19] MEDS ORDERED: potassium Cl 40MEQ/1/2NS 520ml 520 ML IV PRN (20:35)
[2022-11-19] MEDS ORDERED: magnesium 2GM in 50ml NS 50 ML IV PRN (20:35)
[2022-11-19] MEDS: rivaroxaban 15mg tablet PO SCH (20:48)
[2022-11-19 22:00] VITALS: BP 124/71
[2022-11-20] MEDS: ipratropium/albuterol 3ml nebule IH SCH ×2 (02:41→09:00)
[2022-11-20 04:50] LABS: EOSINOPHILS # (AUTO) 0.1 X10'3 (0-0.9); EOSINOPHILS % (AUTO) 1.9 % (0-6); HEMATOCRIT 36.5 % (35.0-45.0); HEMOGLOBIN 11.7 g/dl (12.0-16.0); LYMPHOCYTES # (AUTO) 1.2 X10'3 (1.1-4.8); LYMPHOCYTES % (AUTO) 25.7 % (21-51); MEAN CORPUSCULAR HEMOGLOBIN 26.5 PG (27.0-31.0); MEAN CORPUSCULAR HGB CONC 32.1 g/dL (33.0-36.5); MEAN CORPUSCULAR VOLUME 82.6 FL (78-98); MEAN PLATELET VOLUME 6.6 FL (7.4-10.4); MONOCYTES # (AUTO) 0.7 X10'3 (0-0.9); MONOCYTES % (AUTO) 14.4 % (2-12); NEUTROPHILS # (AUTO) 2.7 X10'3 (1.8-7.7); PLATELET COUNT 536 X10'3 (140-440); RED BLOOD COUNT 4.42 X10'6 (4.20-5.60); RED CELL DISTRIBUTION WIDTH 19.4 % (11.5-14.5); WHITE BLOOD COUNT 4.8 X10'3 (4.5-11.0)
[2022-11-20 04:54] LABS: ALANINE AMINOTRANSFERASE 17 U/L (12-78); ALBUMIN 1.9 G/DL (3.4-5.0); ALBUMIN/GLOBULIN RATIO 0.4 (1.1-1.5); ALKALINE PHOSPHATASE 209 IU/L (46-116); ANION GAP 11 (8-16); ASPARTATE AMINO TRANSFERASE 27 U/L (10-37); BILIRUBIN,TOTAL 0.2 MG/DL (0.1-1.0); BLOOD UREA NITROGEN 11 MG/DL (7-18); BUN/CREATININE RATIO 17.7 (10.0-20.0); CALCIUM 8.2 MG/DL (8.5-10.1); CHLORIDE 104 MMOL/L (99-107); CREATININE 0.62 MG/DL (0.40-0.90); GLUCOSE 105 MG/DL (70-104); MAGNESIUM 1.4 MG/DL (1.5-2.4); POTASSIUM 4.1 MMOL/L (3.5-5.1); SODIUM 138 MMOL/L (135-145); TOTAL CARBON DIOXIDE 23.3 MMOL/L (24-32); TOTAL PROTEIN 6.4 G/DL (6.4-8.2); eGFR > 90 ML/MIN
[2022-11-20] MEDS: normal saline 1000ml 1,000 ML IV SCH (04:55)
[2022-11-20 06:00] VITALS: BP 137/71
--- NOTE | 2022-11-20 06:40 | NUR ---
Problems reprioritized. Patient report given, questions answered & plan of care reviewed with Abdulkadir DE OLIVEIRA.
--- NOTE | 2022-11-20 06:46 | NUR ---
Patient in room ORTHO 4007. I have received report from MANUELA Rodriges and had the opportunity to ask questions and assume patient care.
[2022-11-20] MEDS: K and/or MAG REPLACEMENT MC SCH (08:00)
[2022-11-20] MEDS ORDERED: K and/or MAG REPLACEMENT MC SCH (08:00)
[2022-11-20] MEDS: pantoprazole 40mg Tablet.DR PO SCH (08:41)
[2022-11-20] MEDS: duloxetine 30mg CAPSULE.DR PO SCH (08:41)
[2022-11-20] MEDS: docusate sod 100mg capsule PO SCH (08:41)
[2022-11-20] MEDS: metoprolol tartrate 12.5mg (1/2 tablet) PO SCH (08:41)
[2022-11-20] MEDS: lactobacillus rhamnosus 10,000 MMU CELLS/CAPSULE PO SCH (08:41)
[2022-11-20] MEDS: multivitamins, therapeutics tablet PO SCH (08:41)
[2022-11-20] MEDS: linezolid 600mg tablet PO SCH (08:43)
[2022-11-20] MEDS: lactose-reduced food (Ensure Enlive) - 237ml bottle PO SCH ×2 (08:48→13:20)
[2022-11-20 10:00] VITALS: BP 130/63
--- NOTE | 2022-11-20 12:06 | NUR ---
Zyvox consult: Pt admit for an acute/subacute fracture in the background of chronic fractures of the pelvis per H&P. Pt is currently on Zyvox however pt is not appropriate for low tyramine diet education due to history of dementia, AOx1, and returning to SNF per EMR. Pt is on a soft bite sized and thin liquids diet per FOREPART RASPER with average PO intake of 24% x 9 meals. Pt is current taking Ensure Enlive TIDWM with average intake of 55% x 10 meals however ONS intake appears to be improving the last two days with average intake of 83% x 6 meals. Overall pt partially met estimated needs but now with ONS upwards trend is meeting 100% of estimated nutrition needs. LBM on 11/20 and on routine bowel care per EMR. Will continue to monitor. Rec: 1. continue soft and bite size, thin liquid diet per FOREPART RASPER 2. continue Ensure Enlive TIDWM 3. routine bowel care 4. weekly wts Addendum: 11/20/22 at [address] Amended: Links added. Addendum: 11/20/22 at [address] KAVYA has reviewed and approves of above note.
--- NOTE | 2022-11-20 14:48 | NUR ---
Pt stable for D/C. IV d/c prior to patient leaving. Patient left with all belongings. Patient was d/c to go back to [facility]. Pt left on a gurney with assistance of [facility] personnel. Patient placed into [facility] and transferred back to [facility].
== END 2022-11-20 14:35 | DRG 551 ==
LOC: ER 22:45 → ED HOLD 11-16 02:06 → EDBEDREQ 11-16 02:54 → ORTHO 4S 11-16 03:31
PROVIDERS: ADMIT Internal Medicine; ATTEND Family Medicine
DX: S32.19XA Other fracture of sacrum, initial encounter for closed fracture (principal); S32.492A Other specified fracture of left acetabulum, initial encounter for closed fracture; S32.592A Other specified fracture of left pubis, initial encounter for closed fracture; F03.94 Unspecified dementia, unspecified severity, with anxiety; N39.0 Urinary tract infection, site not specified; Z16.21 Resistance to vancomycin; F41.0 Panic disorder [episodic paroxysmal anxiety]; I48.91 Unspecified atrial fibrillation; Z88.0 Allergy status to penicillin; Z88.8 Allergy status to other drugs, medicaments and biological substances; J44.9 Chronic obstructive pulmonary disease, unspecified
CPT/HCPCS: 36415; 71045; 72192; 80053; 81001; 83690; 83735; 84100; 84132; 85007; 85008; 85025; 87077; 87081; 87088; 87186; 92508; 92616; 94640; 94760; 97110; 97116; 97161; 97530; 99285; A6209; A6213; A6449; C1758; G0378; J0696; J2405; J7030; J7040

== ENCOUNTER 2023-08-10 11:48 | Emergency (ER) | payer MEDICARE, OTHER ==
[~2023-08-10] VITALS: Ht 165.1 cm; Wt 45.5 kg
[~2023-08-10 11:48] MED LIST changes: -ACET-1008 PO; +APIX2.5T PO; -DOCU-148 PO; -LEVO-65 PO; -RIVA15TA PO
[2023-08-10 12:30] VITALS: BP 92/57; PULSE 105; RESP 18; TEMP 99.3; O2SAT 98
== END 2023-08-10 13:43 | disposition left against medical advice (07) ==
LOC: ER 11:48
DX: M54.9 Dorsalgia, unspecified (principal); Z53.21 Procedure and treatment not carried out due to patient leaving prior to being seen by health care provider
CPT/HCPCS: 99281

== ENCOUNTER 2023-11-01 11:51 | Emergency (ER) | payer MEDICARE, OTHER ==
[~2023-11-01] VITALS: Ht 165.1 cm; Wt 44.5 kg
[2023-11-01 12:20] LABS: EOSINOPHILS # (AUTO) 0.2 X10'3 (0-0.9); EOSINOPHILS % (AUTO) 1.8 % (0-6); HEMOGLOBIN 11.6 g/dl (12.0-16.0); MONOCYTES # (AUTO) 1.3 X10'3 (0-0.9)
[2023-11-01 12:22] LABS: BASOPHILS # (AUTO) 0.2 X10'3 (0-0.2); BASOPHILS % (AUTO) 1.5 % (0-1); HEMATOCRIT 37.6 % (35.0-45.0); LYMPHOCYTES # (AUTO) 1.9 X10'3 (1.1-4.8); MEAN CORPUSCULAR HEMOGLOBIN 25.1 PG (27.0-31.0); MEAN CORPUSCULAR HGB CONC 30.8 g/dL (33.0-36.5); MEAN CORPUSCULAR VOLUME 81.4 FL (78-98); MEAN PLATELET VOLUME 6.8 FL (7.4-10.4); MONOCYTES % (AUTO) 9.7 % (2-12); NEUTROPHILS # (AUTO) 10.1 X10'3 (1.8-7.7); PLATELET COUNT 669 X10'3 (140-440); RED BLOOD COUNT 4.62 X10'6 (4.20-5.60); RED CELL DISTRIBUTION WIDTH 17.9 % (11.5-14.5); WHITE BLOOD COUNT 13.8 X10'3 (4.5-11.0)
[2023-11-01 12:35] LABS: ALANINE AMINOTRANSFERASE 11 U/L (12-78); ALBUMIN 2.7 G/DL (3.4-5.0); ALBUMIN/GLOBULIN RATIO 0.4 (1.1-1.5); ALKALINE PHOSPHATASE 76 IU/L (46-116); ANION GAP 10 (8-16); ASPARTATE AMINO TRANSFERASE 13 U/L (10-37); BILIRUBIN,TOTAL 0.4 MG/DL (0.1-1.0); BLOOD UREA NITROGEN 12 MG/DL (7-18); CALCIUM 9.7 MG/DL (8.5-10.1); CHLORIDE 101 MMOL/L (99-107); CREATININE 0.86 MG/DL (0.40-0.90); GLUCOSE 82 MG/DL (70-104); POTASSIUM 3.6 MMOL/L (3.5-5.1); SODIUM 136 MMOL/L (135-145); TOTAL CARBON DIOXIDE 25.1 MMOL/L (24-32); TOTAL PROTEIN 8.8 G/DL (6.4-8.2); eCRCL 34 ML/MIN; eGFR 63 ML/MIN
[2023-11-01 12:42] LABS: PRO BRAIN NATRIURETIC PEPTIDE 1118 PG/ML (0-450)
[2023-11-01] MEDS ORDERED: HYDR28.316 TOP (15:03)
[2023-11-01 15:28] VITALS: BP 111/50; PULSE 87; RESP 16; TEMP 97.9; O2SAT 98
== END 2023-11-01 15:29 | disposition home or self-care (01) ==
LOC: ER 11:52
DX: K62.3 Rectal prolapse (principal); K64.8 Other hemorrhoids; F03.90 Unspecified dementia, unspecified severity, without behavioral disturbance, psychotic disturbance, mood disturbance, and anxiety; F41.9 Anxiety disorder, unspecified; F41.0 Panic disorder [episodic paroxysmal anxiety]; Z72.89 Other problems related to lifestyle; Z88.1 Allergy status to other antibiotic agents; Z79.899 Other long term (current) drug therapy
CPT/HCPCS: 36415; 80053; 83880; 84484; 85025; 93005; 99284